=== PATIENT | female | born 1955 | race Caucasian/White ===

== ENCOUNTER → 2017-12-08 | Outpatient (CLI) | payer OTHER ==
[~2017-12-08] MED LIST: CARAFATE 1GM1 G; COLACE 100100 MG/CAP; CYMBALTA 30MG30 MG; DULCOLAX TAB5 MG; GRX VITAMIN E1000 IU; IBU600 MG; KLONOPIN WAFERS1 MG; MOVANTIK25 MG; MSIR30 MG; PHENOBARBI; PRIL40; SOMA 350MG350 MG/TAB; VITAMIN B COMPL1 T16; VITAMIN B122500 MCG; VITAMIN D32000 I1; VITAMINC1000TA
== END ==
LOC: MC.RAD 11:20
DX: Z12.31 Encounter for screening mammogram for malignant neoplasm of breast (principal)

== ENCOUNTER → 2019-07-19 | Outpatient (CLI) | payer MEDICARE | LOC: MC.RAD 16:12 | DX: Z12.31 Encounter for screening mammogram for malignant neoplasm of breast (principal) ==

== ENCOUNTER → 2020-08-08 | Outpatient (CLI) | payer MEDICARE | LOC: MC.RAD 14:23 | DX: Z12.31 Encounter for screening mammogram for malignant neoplasm of breast (principal) ==

== ENCOUNTER → 2020-08-13 | Outpatient (CLI) | payer MEDICARE | LOC: COL.RAD 10:10 | DX: N13.30 Unspecified hydronephrosis (principal); K76.0 Fatty (change of) liver, not elsewhere classified; Z90.49 Acquired absence of other specified parts of digestive tract ==

== ENCOUNTER 2020-10-15 04:31 | Emergency (ER) | payer MEDICARE ==
[~2020-10-15] VITALS: Ht 157.5 cm; Wt 54.5 kg
[2020-10-15 04:36] VITALS: PULSE 86; TEMP 97.9
[2020-10-15 06:06] VITALS: BP 113/69
== END 2020-10-15 06:07 | disposition home or self-care (01) ==
LOC: COL.ER 04:31
DX: S09.90XA Unspecified injury of head, initial encounter (principal); M25.561 Pain in right knee; G89.4 Chronic pain syndrome; M54.2 Cervicalgia; G40.909 Epilepsy, unspecified, not intractable, without status epilepticus; F17.210 Nicotine dependence, cigarettes, uncomplicated; Z88.8 Allergy status to other drugs, medicaments and biological substances; W01.190A Fall on same level from slipping, tripping and stumbling with subsequent striking against furniture, initial encounter

== ENCOUNTER → 2020-11-15 | Outpatient (CLI) | payer MEDICARE | LOC: MC.RAD 08:00 | DX: R59.0 Localized enlarged lymph nodes (principal) ==

== ENCOUNTER → 2021-08-12 | Outpatient (CLI) | payer MEDICARE | LOC: COL.RAD 13:41 | DX: Z12.2 Encounter for screening for malignant neoplasm of respiratory organs (principal); J84.10 Pulmonary fibrosis, unspecified; Z87.891 Personal history of nicotine dependence ==

== ENCOUNTER → 2021-10-20 | Outpatient (CLI) | payer MEDICARE ==
[2021-10-20 12:16] LABS: BASO % 0.9 % (0.0-2.0); EOS # 0.1 K/mm3 (0.0-0.7); EOS % 1.6 % (0.0-4.0); GRAN % 66.5 % (42.2-75.2); HEMATOCRIT 37.5 % (37.0-47.0); HEMOGLOBIN 12.7 g/dl (12.5-16.0); LYMPH # 1.1 K/mm3 (1.2-3.4); LYMPH % 23.8 % (20.0-51.0); MEAN CELL VOLUME 91 fl (80.0-100.0); MEAN CORPUSCULAR HEMOGLOBIN 31 pg (27-31); MEAN CORPUSCULAR HGB CONC 34 g/dl (33.0-37.0); MEAN PLATELET VOLUME 8.9 fl (7.4-10.4); MONO # 0.3 K/mm3 (0.1-0.6); PLATELET COUNT 328 K/mm3 (130-400); RED BLOOD COUNT 4.13 M/mm3 (4.10-5.30)
[2021-10-21 17:29] LABS: TB GOLD INTERPRETATION Negative (Negative)
[2021-10-22 13:54] LABS: ANGIOTENSIN CONVERTING ENZYME 72 U/L (16 - 85)
[2021-10-24 19:17] LABS: C-ANCA 2 U/mL (0-99)
[2021-10-25 15:03] LABS: HISTOPLASMA ID Negative (Negative); HISTOPLASMA MYCELIAL Negative (Negative); HISTOPLASMA YEAST Negative (Negative)
[2021-10-26 14:51] LABS: COCCIDIOIDES AB IGG Negative (Negative); COCCIDIOIDES AB IGM Negative (Negative); COCCIDIOIDES CF Negative (Negative)
== END ==
LOC: COL.LAB 11:00
PROVIDERS: Internal Medicine Pulmonary Disease
DX: J47.9 Bronchiectasis, uncomplicated (principal)

== ENCOUNTER → 2021-12-02 | Outpatient (CLI) | payer MEDICARE | LOC: MC.RAD 10-14 13:00 | DX: Z12.31 Encounter for screening mammogram for malignant neoplasm of breast (principal) ==

== ENCOUNTER → 2022-12-23 | Outpatient (CLI) | payer MEDICARE ==
[~2022-12-23] MED LIST changes: +B-121000 MCG PO; +BENADRYL25 M2 PO; +CALCIUM 600MG+D1 TAB PO; +CARAFATE 1GM1 G PO; +COMPLETE MULTI1 TAB PO; +CYMBALTA 30MG30 MG PO; +CYMBALTA 60MG60 MG PO; +KLONOPIN 1MG1 MG PO; +LIDODERM 5% PATC1 EA TP; +LINZESS290CAP PO; +MELATONIN ER10 MG PO; +MILK OF MA400 MG/52 PO; +MILK THISTLE500 M2 PO; +MORPHINE 1515 MG/TAB PO; +OMEGA-3 1000 MG1 CAP PO; +PHENOBARBITAL64.8 MG PO; +PROTONIX 40MG T40 MG PO; +SEN-O-TABS8.6 MG PO; +SURFAK 240240 MG/CAP PO; +ZANAFLEX CAPSULE4 MG PO
== END ==
LOC: MC.RAD 10:03
DX: Z12.31 Encounter for screening mammogram for malignant neoplasm of breast (principal)

== ENCOUNTER 2023-08-23 21:51 | Inpatient (IN) | payer MEDICARE ==
[~2023-08-23] VITALS: Ht 162.6 cm; Wt 55.5 kg
[~2023-08-23 21:51] MED LIST changes: -CYMBALTA 60MG60 MG PO
[2023-08-23 22:15] LABS: BASO % 0.4 % (0.0-2.0); EOS # 0.1 K/mm3 (0.0-0.7); EOS % 1.2 % (0.0-4.0); GRAN # 4.9 K/mm3 (1.4-6.5); GRAN % 70.7 % (42.2-75.2); HEMOGLOBIN 10.8 g/dl (12.5-16.0); LYMPH # 1.3 K/mm3 (1.2-3.4); LYMPH % 18.8 % (20.0-51.0); MEAN CELL VOLUME 91 fl (80.0-100.0); MEAN CORPUSCULAR HEMOGLOBIN 30 pg (27-31); MEAN CORPUSCULAR HGB CONC 33 g/dl (33.0-37.0); MEAN PLATELET VOLUME 8.9 fl (7.4-10.4); MONO # 0.6 K/mm3 (0.1-0.6); MONO % 8.6 % (1.7-9.3); PLATELET COUNT 324 K/mm3 (130-400); RED BLOOD COUNT 3.65 M/mm3 (4.10-5.30); REDCELL DISTRIBUTION WIDTH-CV 12.4 % (11.5-14.5)
[2023-08-23 22:18] LABS: HEMATOCRIT 33.1 % (37.0-47.0)
[2023-08-23 22:37] LABS: ALBUMIN 3.3 gm/dL (3.4-4.8); BILIRUBIN,TOTAL 0.5 mg/dL (0.2-1.2); C-REACTIVE PROTEIN 7.7 mg/dL (0.00-0.50); CALCIUM 9.9 mg/dL (8.4-10.2); CREATININE, serum 0.82 mg/dL (0.57-1.11); POTASSIUM 3.8 mmol/L (3.5-4.5); TOTAL PROTEIN 7.7 gm/dL (6.2-8.1)
[2023-08-23] MEDS ORDERED: VITAMINC1000TA PO (23:56)
[2023-08-23] MEDS ORDERED: MASON NATURAL2000 IU PO (23:56)
[2023-08-23] MEDS ORDERED: CALCIUM 600MG+D1 TAB PO (23:57)
[2023-08-23] MEDS ORDERED: B COMPLEX #11 TA1 PO (23:57)
[2023-08-24] VITALS (7 sets, daily range): BP systolic 83–116; BP diastolic 48–72; PULSE 65–85; TEMP 97.5–98.5
[2023-08-24 00:52] LABS: COLLECTION METHOD CLEAN CATCH
[2023-08-24 01:00] LABS: URINE APPEARANCE Clear (CLEAR/HAZY); URINE BLOOD Negative (NEGATIVE); URINE COLOR Yellow (YELLOW); URINE GLUCOSE Negative (NEGATIVE); URINE KETONE Negative (NEGATIVE); URINE NITRATE Negative (NEGATIVE); URINE PROTEIN(semi-quant) Negative (NEGATIVE); URINE UROBILINOGEN 0.2 E.U/dL (0.2-1.0)
[2023-08-24 01:11] LABS: SQUAMOUS EPITHELIAL 0-2 /hpf (0-10); URINE RBC None Seen /hpf (0-2)
[2023-08-24 01:16] LABS: TRICYCLIC ANTIDEPRESS URINE NEGATIVE
[2023-08-24 02:02] LABS: ARTERIAL BLD GAS O2 SATURATION 97.2 % (92-100); ARTERIAL BLD GAS TCO2 CT 28.6; ARTERIAL BLOOD GAS BASE EXCESS 1.1 (-2-2); ARTERIAL BLOOD GAS HCO3 27.1 meq/L (22-26); ARTERIAL BLOOD GAS PCO2 49.4 mmHg (35-45); ARTERIAL BLOOD GAS PO2 104.1 mmHg (80-100); ARTERIAL BLOOD GAS pH 7.36 (7.35-7.45)
--- NOTE | 2023-08-24 02:46 | NUR ---
Received report from ER nurse, Rena at 0059. Pt arrived on the unit at 0109. Pt alert and on 2 L O2 via NC. Pt has a bag of clothes and a bag with her personal belongings that her brought over. Pt currently has her wedding ring on and 3 bracelets on her left wrist and 4 on her right wrist. Pt answered oriented questions appropriately, but seems her mind is still clouded when talking with the pt. Pt still has a slight slur of words. Pt's vitals are stable at this time.
--- NOTE | 2023-08-24 05:23 | NUR ---
Pt had a fall at 0311. The bed rails had seizure pads in place and it obscured the veiw of the bed rail on the left side of the bed where the bed rail was down. Charge nurse, house, and hospitalist notified. Pt states that she hit her head when she fell. Pt taken to CT, CT came back negative. This nurse called family, but family did not answer. This nurse left a voicemail at 0506. Pt is now in a yellow gown with yellow socks and bracelet. Call light is within reach and bed alarms are on. Side table is also within reach. For more info on the fall please see the post fall documentation.
[2023-08-24 06:12] LABS: BASO % 0.3 % (0.0-2.0); EOS # 0.1 K/mm3 (0.0-0.7); EOS % 1.5 % (0.0-4.0); GRAN # 4.2 K/mm3 (1.4-6.5); GRAN % 70.3 % (42.2-75.2); LYMPH # 1.1 K/mm3 (1.2-3.4); LYMPH % 18.7 % (20.0-51.0); MEAN CELL VOLUME 91 fl (80.0-100.0); MEAN CORPUSCULAR HGB CONC 34 g/dl (33.0-37.0); MEAN PLATELET VOLUME 8.8 fl (7.4-10.4); MONO # 0.5 K/mm3 (0.1-0.6); PLATELET COUNT 262 K/mm3 (130-400); RED BLOOD COUNT 2.97 M/mm3 (4.10-5.30); REDCELL DISTRIBUTION WIDTH-CV 12.5 % (11.5-14.5)
[2023-08-24 06:16] LABS: HEMATOCRIT 26.9 % (37.0-47.0); MEAN CORPUSCULAR HEMOGLOBIN 30 pg (27-31)
[2023-08-24 06:28] LABS: CREATININE, serum 0.61 mg/dL (0.57-1.11); POTASSIUM 3.6 mmol/L (3.5-4.5)
--- NOTE | 2023-08-24 06:43 | NUR ---
Pt is currently resting in bed with call light within reach and bed alarms on. Pt has water and the phone on the table next to the bed, within reach. Pt's vitals are stable at this time. Pt on NS. Pt has been using the bedpan when she needs to void since pt is not stable on her feet yet. Will give report to day shift nurse.
--- NOTE | 2023-08-24 07:44 | NUR ---
[facility] [place] PATIENT CURRENTLY LAYING IN BED RESTING WITH EYES CLOSED. SEIZURE PADS IN PLACE. BED IN A LOW POSITION. CALL LIGHT WITHIN REACH. ORDERS, MEDICATIONS, AND LABS ALL ACKNOWLEDGED AND REVIEWED.
[2023-08-24] MEDS ORDERED: PRIL40 PO (08:52)
[2023-08-24] MEDS ORDERED: FOSAMAX 70MG TA70 MG PO (08:52)
--- NOTE | 2023-08-24 09:16 | NUR ---
HEAD TO TOE ASSESSMENT COMPLETED. PATIENT IS VERY DROWSY AND SLOW TO RESPOND TO QUESTIONS, BUT DOES RESPOND APPROPRIATELY TO QUESTIONS. PUPILS ARE EQUAL AND SLOW TO REACT. HEART SOUNDS REGULAR WITH S1 AND S2 NOTED. LUNG SOUNDS ARE CLEAR BILATERALLY IN UPPER AND LOWER BASES. BOWEL SOUNDS ACTIVE X4. PATIENT VOIDS USING BEDPAN. PULSES INTACT AND EQUAL BILATERALLY IN UPPER AND LOWER EXTREMITIES. PATIENT REPORTS NO PAIN AT THIS TIME. MEDICATIONS ADMINISTERED PER EMAR.
--- NOTE | 2023-08-24 14:57 | NUR ---
food production worker met with patient to discuss discharge planning. Patient states that she lives with her spouse, who is also disabled and plans to return there upon discharge. Patient has not utilized home health and worker provded information. Patient states that she has [employer] advantage plan and that it covers her medication cost. Patient states that her primary care provider is Dr Rcoa. Worker left message for Dr Roca's outpatient pharmacy manager to call regarding discharge planning. Discharge plan: home with spouse.
--- NOTE | 2023-08-24 19:00 | NUR ---
REPORT RECEIVED FROM CAITY NORIEGA. PATIENT RESTING IN BED WATCHING TV WITH AT BEDSIDE. NO SIGNS OF ACUTE DISTRESS NOTED AT THIS TIME. ADVISED PATIENT TO USE CALL LIGHT IF SHE NEEDED TO GET OUT OF BED FOR ANY REASON TO HELP PREVENT FALLS.
--- NOTE | 2023-08-24 19:22 | NUR ---
REPORT GIVEN IN PERSON TO BRIAN, MEDICAL FLOOR RN. BRIAN WILL CALL DOWN TO UNIT WHEN READY FOR PATIENT TO TRANSFER UPSTAIRS.
[2023-08-25] VITALS: BP 106/79; PULSE 64; TEMP 98.5
[2023-08-25 04:00] VITALS: BP 94/57; PULSE 77; TEMP 98.8
--- NOTE | 2023-08-25 08:30 | NUR ---
Assessment completed. Alert and oriented and assessment WNL. Patient will utilize call light but is also impulsive. Needs reminding to utilize cane when getting up from bed. Also, encouraged to take her time when going from lying to standing as she tends to want to jump up very quickly. Assisted to call breakfast. Denies any concerns or needs at this time. Call light and bed alarm activated.
[2023-08-25 09:02] VITALS: BP 117/65; PULSE 85; TEMP 98.8
--- NOTE | 2023-08-25 10:45 | NUR ---
Up ambulating in the hallway with PT. Tolerated well; slight limp noted with ambulation. Utilizes a cane at baseline.
--- NOTE | 2023-08-25 11:50 | NUR ---
Discharge packet and instructions reviewed with patient. All questions and concerns addressed at this time. Assisted out to ER entrance via wheelchair. Patient picked up by .
--- NOTE | 2023-08-25 15:14 | NUR ---
Geophysical Drafter attended clinical rounds with the team and patient is ready to discharge today. Hospitalist discussed Home Health services and patient is open to discuss this. ZURI met with patient and provided Medicare.gov list of HH agencies that serve [place]. ZURI explained what HH can offer and it's benefits. Patient does not think her will be agreeable to HH. Patient would also like to contact her insurance provided, [employer] to find out who is in network. Patient does not want to decide on HH today and plans to discuss this with her PCP, Dr. Roca. ZURI Mathur spoke with CAITY Mays-CM at Dr. Roca's office about the above.
== END 2023-08-25 11:50 | disposition home health service (06) | DRG 917 ==
LOC: COL.ER 21:51 → ICU 08-24 00:08
PROVIDERS: Emergency Medicine; Nurse Practitioner Family; ADMIT Internal Medicine
PROC: 0HQ0XZZ Repair Scalp Skin, External Approach (ICD-10-PCS; principal; 2023-08-24)
DX: T40.711A Poisoning by cannabis, accidental (unintentional), initial encounter (principal); J96.01 Acute respiratory failure with hypoxia; J69.0 Pneumonitis due to inhalation of food and vomit; G89.4 Chronic pain syndrome; K21.9 Gastro-esophageal reflux disease without esophagitis; I65.8 Occlusion and stenosis of other precerebral arteries; E06.3 Autoimmune thyroiditis; G62.9 Polyneuropathy, unspecified; G40.909 Epilepsy, unspecified, not intractable, without status epilepticus; W18.39XA Other fall on same level, initial encounter; D64.9 Anemia, unspecified; S01.01XA Laceration without foreign body of scalp, initial encounter; F32.A Depression, unspecified; M85.80 Other specified disorders of bone density and structure, unspecified site; E55.9 Vitamin D deficiency, unspecified; I95.2 Hypotension due to drugs; Z86.16 Personal history of COVID-19; Y93.89 Activity, other specified; Y92.092 Bedroom in other non-institutional residence as the place of occurrence of the external cause; Z87.19 Personal history of other diseases of the digestive system; Z90.49 Acquired absence of other specified parts of digestive tract; Z79.899 Other long term (current) drug therapy; Z87.891 Personal history of nicotine dependence; Z88.8 Allergy status to other drugs, medicaments and biological substances; Z91.040 Latex allergy status; Z23 Encounter for immunization
CPT/HCPCS: C9113; J2405; J2543; J7030